=== PATIENT | female | born 1955 | race African-American/Black ===

== ENCOUNTER → 2017-07-18 10:02 | Outpatient (CLI) | payer OTHER | END | disposition home or self-care (01) | LOC: D.MRI 07-15 13:00 | DX: G43.711 Chronic migraine without aura, intractable, with status migrainosus (principal); M54.2 Cervicalgia; G44.40 Drug-induced headache, not elsewhere classified, not intractable ==

== ENCOUNTER → 2017-07-29 13:40 | Outpatient (CLI) | payer OTHER | END | disposition home or self-care (01) | LOC: D.MRI 13:30 | DX: G43.711 Chronic migraine without aura, intractable, with status migrainosus (principal); M54.2 Cervicalgia ==

== ENCOUNTER 2017-12-28 10:25 | Emergency (ER) | payer MEDICAID ==
[2017-12-28 11:08] LABS: APPEARANCE CLEAR (CLEAR); COLOR YELLOW (YELLOW); NITRITE NEGATIVE (NEGATIVE); PROTEIN NEGATIVE (NEGATIVE)
[2017-12-28 11:09] LABS: BILIRUBIN NEGATIVE (NEGATIVE); GLUCOSE NEGATIVE (NEGATIVE); KETONE SMALL mg/dL (NEGATIVE); UROBILINOGEN NORMAL (NORMAL)
== END 2017-12-28 12:35 | disposition home or self-care (01) ==
LOC: D.ER 10:25
PROVIDERS: Family Medicine
DX: F41.9 Anxiety disorder, unspecified (principal)

== ENCOUNTER 2021-03-30 17:06 | Emergency (ER) | payer MEDICARE, MEDICAID ==
[~2021-03-30] VITALS: Ht 175.3 cm; Wt 86.4 kg
[2021-03-30 17:08] VITALS: BP 149/72; Ht 175.3 cm; Wt 86.4 kg
== END 2021-03-30 18:42 | disposition home or self-care (01) ==
LOC: D.ER 17:06
DX: M51.37 Other intervertebral disc degeneration, lumbosacral region (principal); M54.5 Low back pain; I10 Essential (primary) hypertension